=== PATIENT | female | born 1990 | race Caucasian/White ===

== ENCOUNTER 2021-08-28 19:22 | Outpatient (CLI) | payer SELFPAY ==
[~2021-08-28] VITALS: Ht 158 cm; Wt 104.1 kg
[~2021-08-28 19:22] MED LIST: IBUP-1773 PO; PNV91TAB3 PO
[2021-08-28 19:28] VITALS: BP 123/73
--- NOTE | 2021-08-29 08:21 | Physician Query-Final Dx ---
BIN08/29/21 0821: Clinic Account Progress/Dx Physician Query: Please give diagnosis Please include # weeks gestation Date of Service Aug 28, 2021 at 19:22 UCHE SOLIS MD 08/29/21 0857: Clinic Account Progress/Dx DIAGNOSIS: Diagnosis Third trimester 34 weeks gestation Abdominal pain in BIN,MayAug 29, 2021 08:21 UCHE SOLIS MD Aug 29, 2021 08:57
== END 2021-08-28 19:55 | disposition home or self-care (01) ==
LOC: WSo 19:22 → LDRP 19:22 → WSo 19:55
PROVIDERS: ATTEND Family Medicine
DX: O26.893 Other specified pregnancy related conditions, third trimester (principal); R10.9 Unspecified abdominal pain; Z3A.34 34 weeks gestation of pregnancy
CPT/HCPCS: 99212

== ENCOUNTER 2021-09-30 11:58 | Outpatient (CLI) | payer OTHER ==
[~2021-09-30] VITALS: Ht 154.9 cm; Wt 104.8 kg
[2021-09-30 12:00] VITALS: BP 134/88
[2021-09-30 12:25] VITALS: BP 134/80
[2021-09-30 12:51] LABS: BILIRUBIN,URINE NEGATIVE (NEGATIVE); CLARITY,URINE CLEAR; COLOR,URINE YELLOW; GLUCOSE, URINE (UA) NEGATIVE (NEGATIVE); KETONES,URINE NEGATIVE (NEGATIVE); LEUKOCYTE ESTERASE ,URINE TRACE (NEGATIVE); NITRITE,URINE NEGATIVE (NEGATIVE); PROTEIN,URINE NEGATIVE (NEGATIVE)
[2021-09-30 12:57] LABS: BASOPHILS % (AUTO) 0 % (0-10); EOSINOPHILS # (AUTO) 0.1 10^3/uL (0.0-0.3); EOSINOPHILS % (AUTO) 1 % (0-10); HEMATOCRIT 38 % (35-52); HEMOGLOBIN 12.2 g/dL (11.5-16.0); LYMPHOCYTES # (AUTO) 1.9 10^3/uL (1.0-4.0); LYMPHOCYTES % (AUTO) 18 % (12-44); MEAN CORPUSCULAR HEMOGLOBIN 27 pg (25-34); MEAN CORPUSCULAR HGB CONC 32 g/dL (32-36); MEAN CORPUSCULAR VOLUME 82 fL (80-99); MONOCYTES # (AUTO) 0.5 10^3/uL (0.0-1.0); MONOCYTES % (AUTO) 5 % (0-12); NEUTROPHILS # (AUTO) 7.9 10^3/uL (1.8-7.8); NEUTROPHILS % (AUTO) 76 % (42-75); PLATELET COUNT 273 10^3/uL (130-400); WHITE BLOOD COUNT 10.5 10^3/uL (4.3-11.0)
[2021-09-30 13:00] LABS: URINE CREATININE FOR RATIO 24 MG/DL (30-125); URINE PROTEIN FOR RATIO ONLY < 6 MG/DL (6-12)
[2021-09-30 13:01] LABS: BACTERIA,URINE FEW /HPF
[2021-09-30 13:10] LABS: ALBUMIN 3.4 GM/DL (3.2-4.5)
[2021-09-30 13:11] LABS: POTASSIUM 3.5 MMOL/L (3.6-5.0)
[2021-09-30 13:12] LABS: CALCIUM 10.2 MG/DL (8.5-10.1)
[2021-09-30 13:13] LABS: TOTAL PROTEIN 6.7 GM/DL (6.4-8.2)
[2021-09-30 13:15] LABS: BILIRUBIN,TOTAL 0.3 MG/DL (0.1-1.0)
[2021-09-30 13:17] LABS: CREATININE SERUM 0.7 MG/DL (0.60-1.30)
--- NOTE | 2021-10-01 08:36 | Physician Query-Final Dx ---
Clinic Account Progress/Dx Physician Query: Please give diagnosis Please include # weeks gestation Date of Service September 30, 2021 at 11:58 ,MayOctober 01, 2021 08:36
== END 2021-09-30 13:48 | disposition home or self-care (01) ==
LOC: LDRP 11:58 → WSo 11:58
PROVIDERS: ATTEND Family Medicine
DX: O13.3 Gestational [pregnancy-induced] hypertension without significant proteinuria, third trimester (principal); Z3A.39 39 weeks gestation of pregnancy
CPT/HCPCS: 80053; 81000; 82570; 84156; 85025; 87088; G0463; 36415; 99213

== ENCOUNTER 2021-10-02 07:12 | Inpatient (IN) | payer OTHER ==
[2021-10-02] VITALS (57 sets, daily range): BP systolic 110–155; BP diastolic 56–100
[2021-10-02] MEDS ORDERED: MINERAL OIL 30 ML TOP PRN (07:30)
[2021-10-02 07:32] LABS: BASOPHILS % (AUTO) 0 % (0-10); EOSINOPHILS % (AUTO) 0 % (0-10); HEMATOCRIT 37 % (35-52); LYMPHOCYTES # (AUTO) 1.8 10^3/uL (1.0-4.0); LYMPHOCYTES % (AUTO) 19 % (12-44); MEAN CORPUSCULAR HEMOGLOBIN 27 pg (25-34); MEAN CORPUSCULAR HGB CONC 32 g/dL (32-36); MEAN CORPUSCULAR VOLUME 82 fL (80-99); MEAN PLATELET VOLUME 10.2 fL (9.0-12.2); MONOCYTES # (AUTO) 0.5 10^3/uL (0.0-1.0); MONOCYTES % (AUTO) 5 % (0-12); NEUTROPHILS # (AUTO) 7.4 10^3/uL (1.8-7.8); NEUTROPHILS % (AUTO) 75 % (42-75); PLATELET COUNT 279 10^3/uL (130-400); WHITE BLOOD COUNT 9.8 10^3/uL (4.3-11.0)
[2021-10-02] MEDS ORDERED: NS (IVPB) 50 ML ONE (07:41)
[2021-10-02] MEDS ORDERED: AMPICILLIN 2,000 MG/14.8 ML (IV USE) ONE (07:41)
[2021-10-02] MEDS: D5 LR IV SOLUTION 1,000 ML IV SCH ×2 (07:44→16:08)
--- NOTE | 2021-10-02 08:13 | History & Physical-OB/GYN ---
BRITTANI CUMMINGS 10/02/21 0812: OB - Chief Complaint & HPI Date/Time Date of Admission: Date of Admission: October 02, 2021 at 07:12 Date seen by a Provider: October 02, 2021 Time Seen by a Provider: 07:57 Chief Complaint/History OB-Reason for Admission/Chief: Induction of Labor Hx : 4 Hx Para: 3 Hx Last Menstrual Period: 12/29/2020 Estimated Date of Conception: 01/11/2021 Expected Date of Delivery: October 05, 2021 Gestational Age in Weeks: 39 Gestational Age in Days: 4 Indication for induction: maternal discomfort (History of IOL (2010 and 2015)), maternal distance (Patient lives in [place]) History of Labs GBS Pos, HIV Neg, PAP Normal, HPV Neg, CBC Normal, A+ Blood Type, Antibody Neg, Syphilis Neg, Hep B Neg, TSH Normal, Rubella Immune, GC/Chlamydia Neg Allergies and Home Medications Allergies Coded Allergies: No Known Drug Allergies (Unverified , 10/02/21) Verified 10/02/2021 with patient Patient Home Medication List Home Medication List Reviewed: Yes Pnv95/Ferrous Fumarate/FA ( Caplet) 1 Each Tablet, 1 EACH PO DAILY, (Reported) Entered as Reported by: SALO REYES on 10/19/15 1242 OB - History Hx of Present Care: Yes Obstetrical Complications: None Medical Complications: None Information Induced Hypertension: No Maternal Gestational Diabetes: No Hemorrhage: No Obstetrical History Hx : 4 Hx Para: 3 Hx # Term Pregnancies: 3 Hx # Pregnancies: 0 Number of Living Children: 3 Hx Termination: No Hx Multiple Gestation: No Hx Ectopic : No Hx Stillbirth: No Hx Complication: No Hx Induced Hypertens: No Hx Maternal Gestational Diabet: No Hx Hemorrhage: No Delivery History Hx Dystocia: No Hx Forceps Assisted Delivery: No Hx Vacuum Extraction Assisted: No Hx Placenta Abnormality: Yes (Reported placenta previa during 2nd that resolved with time) Hx Distress: No Hx Large For Gestational Age I: No Hx Small for Gestational Age I: No Hx Section: No Hx Vaginal Delivery Post C-Sec: No Hx Blood Disorders: No Adverse Rxn to Tranfusion: No Patient Past Medical History hx of post- depression Social History/Family History Alcohol Use: Denies Use Recreational Drug Use: No Smoking Cessation: Former smoker (Full smoking cessation 7 months ago) 2nd Hand Smoke Exposure: No Immunizations Influenza Vaccine Up-to-Date: No; Not Current First/Initial COVID19 Vaccine: 08/15/2020 Second COVID19 Vaccination: 09/07/2020 Hepatitis A: No Hepatitis B: No Tetanus Booster (TDap): Less than 5yrs (08/15/2021) Rubella: immune RPR/VDRL: Negative GBS Status: Negative HBsAG: Negative OB - Admission Exam Physical Exam HEENT: PERRLA Heart: Rhythm Normal Lungs: Clear Abdomen: Gravid Extremities: Edema (Bilateral lower extremity 1+ edema) Reflexes: Normal Cervical Dilatation: 3cm Effacement: 0% Station: -3 Membranes: Intact Amniotic Fluid: Unevaluable Heart Rate: 140's Accelerations: Accelerations Present Decelerations: No Decelerations Short Term Variability: Present Instrumentation Designer Variability: Average (6-25) Frequency of Contractions: Irregular with frequent uterine irritability Song Scoring Tool (Modified) Dilation (cm): 3-4cm (2) Effacement (%): 0-30% (0) Descent/Station: -3 (0) Cervix Consistency: Soft (2) Cervix Position: Anterior (2) Add 1 point for: Each previous vaginal delivery (1) (3 previous vaginal deliveries) Song Score: 9 Labs Laboratory Tests Test 10/02/21 07:20 Range/Units White Blood Count 9.8 4.3-11.0 10^3/uL Red Blood Count 4.52 3.80-5.11 10^6/uL Hemoglobin 12.0 11.5-16.0 g/dL Hematocrit 37 35-52 % Mean Corpuscular Volume 82 80-99 fL Mean Corpuscular Hemoglobin 27 25-34 pg Mean Corpuscular Hemoglobin Concent 32 32-36 g/dL Red Cell Distribution Width 13.9 10.0-14.5 % Platelet Count 279 130-400 10^3/uL Mean Platelet Volume 10.2 9.0-12.2 fL Immature Granulocyte % (Auto) 0 % Neutrophils (%) (Auto) 75 42-75 % Lymphocytes (%) (Auto) 19 12-44 % Monocytes (%) (Auto) 5 0-12 % Eosinophils (%) (Auto) 0 0-10 % Basophils (%) (Auto) 0 0-10 % Neutrophils # (Auto) 7.4 1.8-7.8 10^3/uL Lymphocytes # (Auto) 1.8 1.0-4.0 10^3/uL Monocytes # (Auto) 0.5 0.0-1.0 10^3/uL Eosinophils # (Auto) 0.0 0.0-0.3 10^3/uL Basophils # (Auto) 0.0 0.0-0.1 10^3/uL Immature Granulocyte # (Auto) 0.0 0.0-0.1 10^3/uL OB - Assessment/Plan/Diagnosis Assessment Assessment: group B positive strep, induction of labor Admission Dx Induction of Labor, full term 39 weeks 4 days gestational age, GBS Pos Admission Status: Inpatient Order (span 2 midnights) Plan Plan: Induction Induction Method: per Pitocin Protocol Other Plan Ampicillin for GBS Positive Copy Copies To 1: UCHE SOLIS MD, BETHANY N MD 10/02/21 1125: Allergies and Home Medications Allergies Coded Allergies: No Known Drug Allergies (Unverified , 10/02/21) Verified 10/02/2021 with patient Patient Home Medication List Pnv95/Ferrous Fumarate/FA ( Caplet) 1 Each Tablet, 1 EACH PO DAILY, (Reported) Entered as Reported by: SALO REYES on 10/19/15 1242 Copy Copies To 1: UCHE SOLIS MD Supervisory-Addendum Brief Verification & Attestation Participated in pt care: history, MDM, physical Personally performed: exam Care discussed with: Medical Student Procedures: n/a I personally have seen and evaluated the patient and performed the physical exam. I agree with the documented assessment and plan. BRITTANI CUMMINGS October 02, 2021 08:12 UCHE SOLIS MD October 02, 2021 11:25
[2021-10-02] MEDS ORDERED: AMPICILLIN FOR IV USE 2,000 MG in NS (IVPB) 50 ML IV SCH (09:54)
[2021-10-02] MEDS: OXYTOCIN PRE-MIX DRIP 500 ML IV SCH ×2 (11:09→23:43)
[2021-10-02] MEDS: AMPICILLIN FOR IV USE 1,000 MG in NS (IVPB) 50 ML IV SCH ×3 (12:52→19:59)
[2021-10-02] MEDS ORDERED: CATHETER FLUSH 10 ML SYR IV SCH (14:00)
--- NOTE | 2021-10-02 16:02 | Labor Progress Note ---
Labor Progress Note Labor Progress Note Date Seen by Provider: October 02, 2021 Time Seen by Provider: 15:50 Subjective: Pt starting to hurt with contractions. Objective: Cervical exam: /-3 Consistency: soft Position: anterior Presentation: vertex heart tones: 150 beats per minute, moderate variability, reactive, no decels, category I tracing Tocometer: 5 ctx/10 minutes Assessment/Plan: Deedee Vaz is a (31 /Para 4 / 3,Gestational Age (wks)39 here for induction of labor. CEFM/TOCO Continue pitocin Anesthesia: none Anticipate vaginal delivery. Vitals - Labs Vital Signs - I&O Vital Signs Date Time Temp Pulse Resp B/P (MAP) Pulse Ox O2 Delivery O2 Flow Rate FiO2 10/02/21 15:25 71 18 142/73 (96) Room Air 10/02/21 15:10 80 18 134/85 (101) Room Air 10/02/21 14:55 71 18 123/80 (94) Room Air 10/02/21 14:40 78 18 116/75 (89) Room Air 10/02/21 14:25 36.6 81 18 110/73 (85) Room Air 10/02/21 13:40 75 18 124/71 (88) Room Air 10/02/21 13:25 82 18 117/67 (84) Room Air 10/02/21 13:10 76 18 137/90 (106) Room Air 10/02/21 12:55 81 18 112/57 (75) Room Air 10/02/21 12:25 76 18 127/85 (99) Room Air 10/02/21 12:10 81 18 122/63 (82) Room Air 10/02/21 11:55 75 18 122/63 (82) Room Air 10/02/21 11:40 77 18 134/81 (98) Room Air 10/02/21 11:25 70 18 125/76 (92) Room Air 10/02/21 11:10 78 18 135/86 (102) Room Air Labs Laboratory Tests 10/02/21 07:20: White Blood Count 9.8, Red Blood Count 4.52, Hemoglobin 12.0, Hematocrit 37, Mean Corpuscular Volume 82, Mean Corpuscular Hemoglobin 27, Mean Corpuscular Hemoglobin Concent 32, Red Cell Distribution Width 13.9, Platelet Count 279, Mean Platelet Volume 10.2, Immature Granulocyte % (Auto) 0, Neutrophils (%) (Auto) 75, Lymphocytes (%) (Auto) 19, Monocytes (%) (Auto) 5, Eosinophils (%) (Auto) 0, Basophils (%) (Auto) 0, Neutrophils # (Auto) 7.4, Lymphocytes # (Auto) 1.8, Monocytes # (Auto) 0.5, Eosinophils # (Auto) 0.0, Basophils # (Auto) 0.0, Immature Granulocyte # (Auto) 0.0 UCHE SOLIS MD October 02, 2021 16:02
--- NOTE | 2021-10-02 20:37 | Labor Progress Note ---
Labor Progress Note Labor Progress Note Date Seen by Provider: October 02, 2021 Time Seen by Provider: 20:10 Subjective: Pt denies complaints. Objective: Cervical exam: 4.5/60/-3 (per nursing report) Consistency: soft Position: anterior Presentation: vertex heart tones: 150 beats per minute, moderate variability Tocometer: 5 ctx/10 minutes Assessment/Plan: Deedee Vaz is a (31 /Para 4 / 3,Gestational Age (wks)39 here for induction of labor, experiencing prolonged latent phase. Discussed options including continuing current pitocin, attempting controlled AROM, abandoning induction at this time and trying another day and holding pitocin for a few hours and restarting after a rest. She would like to pursue the final option, will recheck in about an hour and if no change, will hold pitocin, allow to ambulate and then rest for a few hours before resuming pitocin. CEFM/TOCO Continue pitocin Anesthesia: none Anticipate vaginal delivery. Vitals - Labs Vital Signs - I&O Vital Signs Date Time Temp Pulse Resp B/P (MAP) Pulse Ox O2 Delivery O2 Flow Rate FiO2 10/02/21 18:55 79 18 134/89 (104) Room Air 10/02/21 18:40 76 18 138/90 (106) Room Air 10/02/21 18:25 74 18 129/76 (93) Room Air 10/02/21 17:55 84 18 122/71 (88) Room Air 10/02/21 17:40 81 18 120/67 (84) Room Air 10/02/21 17:25 37.1 88 18 120/59 (79) Room Air 10/02/21 17:10 76 18 127/60 (82) Room Air 10/02/21 16:55 77 18 136/82 (100) Room Air 10/02/21 16:40 80 18 133/80 (97) Room Air 10/02/21 16:25 73 18 119/79 (92) Room Air 10/02/21 16:10 77 18 133/77 (95) Room Air 10/02/21 15:55 79 18 153/82 (105) Room Air 10/02/21 15:40 69 18 133/79 (97) Room Air 10/02/21 15:25 71 18 142/73 (96) Room Air 10/02/21 15:10 80 18 134/85 (101) Room Air 10/02/21 14:55 71 18 123/80 (94) Room Air 10/02/21 14:40 78 18 116/75 (89) Room Air 10/02/21 14:25 36.6 81 18 110/73 (85) Room Air 10/02/21 13:40 75 18 124/71 (88) Room Air 10/02/21 13:25 82 18 117/67 (84) Room Air 10/02/21 13:10 76 18 137/90 (106) Room Air 10/02/21 12:55 81 18 112/57 (75) Room Air 10/02/21 12:25 76 18 127/85 (99) Room Air 10/02/21 12:10 81 18 122/63 (82) Room Air 10/02/21 11:55 75 18 122/63 (82) Room Air 10/02/21 11:40 77 18 134/81 (98) Room Air 10/02/21 11:25 70 18 125/76 (92) Room Air 10/02/21 11:10 78 18 135/86 (102) Room Air Labs Laboratory Tests 10/02/21 07:20: White Blood Count 9.8, Red Blood Count 4.52, Hemoglobin 12.0, Hematocrit 37, Mean Corpuscular Volume 82, Mean Corpuscular Hemoglobin 27, Mean Corpuscular Hemoglobin Concent 32, Red Cell Distribution Width 13.9, Platelet Count 279, Mean Platelet Volume 10.2, Immature Granulocyte % (Auto) 0, Neutrophils (%) (Auto) 75, Lymphocytes (%) (Auto) 19, Monocytes (%) (Auto) 5, Eosinophils (%) (Auto) 0, Basophils (%) (Auto) 0, Neutrophils # (Auto) 7.4, Lymphocytes # (Auto) 1.8, Monocytes # (Auto) 0.5, Eosinophils # (Auto) 0.0, Basophils # (Auto) 0.0, Immature Granulocyte # (Auto) 0.0 UCHE SOLIS MD October 02, 2021 20:37
--- NOTE | 2021-10-02 21:24 | Labor Progress Note ---
Labor Progress Note Labor Progress Note Date Seen by Provider: October 02, 2021 Time Seen by Provider: 21:10 Subjective: Pt having more pain with contractions. Objective: Cervical exam: /-3 Consistency: soft Position: anterior Presentation: vertex heart tones: 150 beats per minute prior to AROM, 160s after, moderate variability Tocometer: 5 ctx/10 minutes Assessment/Plan: Deedee Vaz is a (31 /Para 4 / 3,Gestational Age (wks)39 here for induction of labor. AROM done at time of this exam with clear fluid, FSE placed for better monitoring ability. FSE/TOCO Continue pitocin Anesthesia: none Anticipate vaginal delivery. Vitals - Labs Vital Signs - I&O Vital Signs Date Time Temp Pulse Resp B/P (MAP) Pulse Ox O2 Delivery O2 Flow Rate FiO2 10/02/21 19:45 36.5 76 18 143/86 (105) Room Air 10/02/21 19:30 74 18 128/73 (91) Room Air 10/02/21 19:15 80 18 137/83 (101) Room Air 10/02/21 18:55 79 18 134/89 (104) Room Air 10/02/21 18:40 76 18 138/90 (106) Room Air 10/02/21 18:25 74 18 129/76 (93) Room Air 10/02/21 17:55 84 18 122/71 (88) Room Air 10/02/21 17:40 81 18 120/67 (84) Room Air 10/02/21 17:25 37.1 88 18 120/59 (79) Room Air 10/02/21 17:10 76 18 127/60 (82) Room Air 10/02/21 16:55 77 18 136/82 (100) Room Air 10/02/21 16:40 80 18 133/80 (97) Room Air 10/02/21 16:25 73 18 119/79 (92) Room Air 10/02/21 16:10 77 18 133/77 (95) Room Air 10/02/21 15:55 79 18 153/82 (105) Room Air 10/02/21 15:40 69 18 133/79 (97) Room Air 10/02/21 15:25 71 18 142/73 (96) Room Air 10/02/21 15:10 80 18 134/85 (101) Room Air 10/02/21 14:55 71 18 123/80 (94) Room Air 10/02/21 14:40 78 18 116/75 (89) Room Air 10/02/21 14:25 36.6 81 18 110/73 (85) Room Air 10/02/21 13:40 75 18 124/71 (88) Room Air 10/02/21 13:25 82 18 117/67 (84) Room Air 10/02/21 13:10 76 18 137/90 (106) Room Air 10/02/21 12:55 81 18 112/57 (75) Room Air 10/02/21 12:25 76 18 127/85 (99) Room Air 10/02/21 12:10 81 18 122/63 (82) Room Air 10/02/21 11:55 75 18 122/63 (82) Room Air 10/02/21 11:40 77 18 134/81 (98) Room Air 10/02/21 11:25 70 18 125/76 (92) Room Air 10/02/21 11:10 78 18 135/86 (102) Room Air Labs Laboratory Tests 10/02/21 07:20: White Blood Count 9.8, Red Blood Count 4.52, Hemoglobin 12.0, Hematocrit 37, Mean Corpuscular Volume 82, Mean Corpuscular Hemoglobin 27, Mean Corpuscular Hemoglobin Concent 32, Red Cell Distribution Width 13.9, Platelet Count 279, Mean Platelet Volume 10.2, Immature Granulocyte % (Auto) 0, Neutrophils (%) (Auto) 75, Lymphocytes (%) (Auto) 19, Monocytes (%) (Auto) 5, Eosinophils (%) (Auto) 0, Basophils (%) (Auto) 0, Neutrophils # (Auto) 7.4, Lymphocytes # (Auto) 1.8, Monocytes # (Auto) 0.5, Eosinophils # (Auto) 0.0, Basophils # (Auto) 0.0, Immature Granulocyte # (Auto) 0.0 UCHE SOLIS MD October 02, 2021 21:24
[2021-10-02] MEDS ORDERED: fentaNYL INJ 100 MCG/2 ML AMP ONE ×2 (21:52→22:45)
[2021-10-02] MEDS ORDERED: fentaNYL INJ 100 MCG/2 ML AMP IVP PRN (22:00)
[2021-10-02] MEDS ORDERED: LIDOCAINE/EPI 2% 1:200,00 (XYLOCAINE) 10 ML VIAL ONE (22:29)
[2021-10-02] MEDS ORDERED: BUPIVACAINE 0.25% 10 ML (SENSORCAINE) VIAL ONE (22:45)
[2021-10-02] MEDS ORDERED: fentaNYL 2 mcg/ml BUPIVA 0.125 100 ML ONE (22:48)
[2021-10-02] MEDS ORDERED: LIDOCAINE PF 2% 5 ML (XYLOCAINE) VIAL ONE (23:17)
--- NOTE | 2021-10-02 23:56 | OB Labor & Delivery Record ---
Vag Delivery Note Vag Delivery Note Date of Delivery: 10/02/21 Preoperative Diagnosis: Deedee Vaz is a (31 /Para 4 / 3, Gestational Age (wks)39with 4 days Postoperative Diagnosis: Same Surgeon: UCHE SOLIS Anesthesia: Epidural Delivery Type: Findings: Viable female , apgars [], weight 8#3 Lacerations: None Intact placenta with 3 vessel cord. Loose nuchal cord x 2 delivered through. Brief less than 1 minute shoulder dystocia resolved with McRobert's positioning Estimated Blood Loss: 400 ml Complications: None Condition: Stable Description of Procedure: The patient is a 31 year old female who presented for induction of labor. She was admitted and informed consent was obtained. Her labor course was unremarkable. She progressed to complete dilatation and began to push. She was then set up for delivery. The infant's head was delivered atraumatically in the LUANA position. McRobert's positioning was required to deliver the anterior shoulder less than 60 seconds after head, and then the remainder of the infant's body were then delivered without difficulty. Upon delivery, the infant was vigorous and placed on maternal abdomen. An intact placenta with 3-vessel cord delivered via Fiona and there was found to be minimal bleeding.~ Vigorous fundal massage was performed and the fundus was found to be firm. IV oxytocin was given. Examination of the vagina and perineum revealed a no lacerations. Following the delivery, sponge, instrument and needle counts were correct. Mom and baby were both in stable condition in the labor suite. Vitals - Labs Vital Signs - I&O Vital Signs Date Time Temp Pulse Resp B/P (MAP) Pulse Ox O2 Delivery O2 Flow Rate FiO2 10/02/21 20:45 79 18 134/85 (101) Room Air 10/02/21 20:30 77 18 134/82 (99) Room Air 10/02/21 20:15 80 18 155/78 (103) Room Air 10/02/21 20:00 80 18 135/87 (103) Room Air 10/02/21 19:45 36.5 76 18 143/86 (105) Room Air 10/02/21 19:30 74 18 128/73 (91) Room Air 10/02/21 19:15 80 18 137/83 (101) Room Air 10/02/21 18:55 79 18 134/89 (104) Room Air 10/02/21 18:40 76 18 138/90 (106) Room Air 10/02/21 18:25 74 18 129/76 (93) Room Air 10/02/21 17:55 84 18 122/71 (88) Room Air 10/02/21 17:40 81 18 120/67 (84) Room Air 10/02/21 17:25 37.1 88 18 120/59 (79) Room Air 10/02/21 17:10 76 18 127/60 (82) Room Air 10/02/21 16:55 77 18 136/82 (100) Room Air 10/02/21 16:40 80 18 133/80 (97) Room Air 10/02/21 16:25 73 18 119/79 (92) Room Air 10/02/21 16:10 77 18 133/77 (95) Room Air 10/02/21 15:55 79 18 153/82 (105) Room Air 10/02/21 15:40 69 18 133/79 (97) Room Air 10/02/21 15:25 71 18 142/73 (96) Room Air 10/02/21 15:10 80 18 134/85 (101) Room Air 10/02/21 14:55 71 18 123/80 (94) Room Air 10/02/21 14:40 78 18 116/75 (89) Room Air 10/02/21 14:25 36.6 81 18 110/73 (85) Room Air 10/02/21 13:40 75 18 124/71 (88) Room Air 10/02/21 13:25 82 18 117/67 (84) Room Air 10/02/21 13:10 76 18 137/90 (106) Room Air 10/02/21 12:55 81 18 112/57 (75) Room Air 10/02/21 12:25 76 18 127/85 (99) Room Air 10/02/21 12:10 81 18 122/63 (82) Room Air 10/02/21 11:55 75 18 122/63 (82) Room Air 10/02/21 11:40 77 18 134/81 (98) Room Air 10/02/21 11:25 70 18 125/76 (92) Room Air 10/02/21 11:10 78 18 135/86 (102) Room Air Labs Laboratory Tests 10/02/21 07:20: White Blood Count 9.8, Red Blood Count 4.52, Hemoglobin 12.0, Hematocrit 37, Mean Corpuscular Volume 82, Mean Corpuscular Hemoglobin 27, Mean Corpuscular Hemoglobin Concent 32, Red Cell Distribution Width 13.9, Platelet Count 279, Mean Platelet Volume 10.2, Immature Granulocyte % (Auto) 0, Neutrophils (%) (Auto) 75, Lymphocytes (%) (Auto) 19, Monocytes (%) (Auto) 5, Eosinophils (%) (Auto) 0, Basophils (%) (Auto) 0, Neutrophils # (Auto) 7.4, Lymphocytes # (Auto) 1.8, Monocytes # (Auto) 0.5, Eosinophils # (Auto) 0.0, Basophils # (Auto) 0.0, Immature Granulocyte # (Auto) 0.0 UCHE SOLIS MD October 02, 2021 23:56
[2021-10-03] VITALS (9 sets, daily range): BP systolic 112–125; BP diastolic 53–77
[2021-10-03] MEDS ORDERED: diphenhydrAMINE 50 MG/ML INJ (BENADRYL) IV PRN
[2021-10-03] MEDS ORDERED: METOCLOPRAMIDE INJ 10 MG/2 ML (REGLAN) IV PRN
[2021-10-03] MEDS ORDERED: EPIDURAL (fentaNYL 2 MCG/ML BUPIVA 0.125%)100 ML BAG EPI PRN
[2021-10-03] MEDS ORDERED: NALOXONE 0.4 MG/ML 1 ML (NARCAN) VIAL IV PRN ×2
[2021-10-03] MEDS ORDERED: LACTATED RINGERS 1,000 ML IV SCH
[2021-10-03] MEDS ORDERED: ONDANSETRON 4 MG/2 ML (SDV) Z0FRAN IV PRN
[2021-10-03] MEDS: OXYTOCIN PRE-MIX DRIP 500 ML IV SCH ×2 (00:05)
[2021-10-03] MEDS ORDERED: WITCH HAZEL(TUCKS) 40 EA JAR TOP PRN (00:45)
[2021-10-03] MEDS ORDERED: BENZOCAINE/MENTHOL (DERMOPLAST) 56 ML CAN TP PRN (00:45)
[2021-10-03] MEDS: IBUPROFEN 600 MG (MOTRIN) TAB PO PRN ×2 (04:51→18:13)
[2021-10-03] MEDS ORDERED: CATHETER FLUSH 10 ML SYR IV SCH (06:00)
[2021-10-03 06:04] LABS: BASOPHILS % (AUTO) 0 % (0-10); EOSINOPHILS % (AUTO) 0 % (0-10); HEMATOCRIT 31 % (35-52); HEMOGLOBIN 10.4 g/dL (11.5-16.0); LYMPHOCYTES # (AUTO) 1.4 10^3/uL (1.0-4.0); LYMPHOCYTES % (AUTO) 11 % (12-44); MEAN CORPUSCULAR HEMOGLOBIN 27 pg (25-34); MEAN CORPUSCULAR HGB CONC 33 g/dL (32-36); MEAN CORPUSCULAR VOLUME 82 fL (80-99); MEAN PLATELET VOLUME 10.2 fL (9.0-12.2); MONOCYTES # (AUTO) 0.5 10^3/uL (0.0-1.0); MONOCYTES % (AUTO) 4 % (0-12); NEUTROPHILS # (AUTO) 10.8 10^3/uL (1.8-7.8); NEUTROPHILS % (AUTO) 85 % (42-75); PLATELET COUNT 244 10^3/uL (130-400); WHITE BLOOD COUNT 12.7 10^3/uL (4.3-11.0)
[2021-10-03] MEDS ORDERED: DOCU100C37 PO (07:53)
[2021-10-03] MEDS ORDERED: FERR325T24 PO (07:53)
[2021-10-03] MEDS ORDERED: IBUP-844 PO (07:53)
--- NOTE | 2021-10-03 07:54 | Progress Note ---
Subjective Subjective/Events-last exam PPD#1 s/p , doing well, denies concerns. Bleeding minimal. Denies dizziness, chest pain, shortness of breath. Objective Exam Last Set of Vital Signs Vital Signs Date Time Temp Pulse Resp B/P (MAP) Pulse Ox O2 Delivery O2 Flow Rate FiO2 10/03/21 04:52 36.3 90 18 125/77 (93) 97 Room Air Capillary Refill : I&O Intake and Output 10/03/21 00:00 Intake Total 1114.8 ml Balance 1114.8 ml Intake IV Total 1114.8 ml Daily Weight Change No General: Alert, No Acute Distress Lungs: Clear to Auscultation Heart: Regular Rate, No Murmurs Abdomen: Other (fundus firm at umbilicus) Neuro: Normal Speech Psych/Mental Status: Mental Status NL Results/Procedures Lab Laboratory Tests 10/03/21 05:56: White Blood Count 12.7H, Red Blood Count 3.81, Hemoglobin 10.4L, Hematocrit 31L, Mean Corpuscular Volume 82, Mean Corpuscular Hemoglobin 27, Mean Corpuscular Hemoglobin Concent 33, Red Cell Distribution Width 13.9, Platelet Count 244, Mean Platelet Volume 10.2, Immature Granulocyte % (Auto) 0, Neutrophils (%) (Auto) 85H, Lymphocytes (%) (Auto) 11L, Monocytes (%) (Auto) 4, Eosinophils (%) (Auto) 0, Basophils (%) (Auto) 0, Neutrophils # (Auto) 10.8H, Lymphocytes # (Auto) 1.4, Monocytes # (Auto) 0.5, Eosinophils # (Auto) 0.0, Basophils # (Auto) 0.0, Immature Granulocyte # (Auto) 0.1 Assessment/Plan Assessment/Plan (1) Spontaneous vaginal delivery Status: Acute Assessment & Plan: Routine care (2) anemia Status: Acute Assessment & Plan: Acute blood loss anemia, asymptomatic, start iron daily. UCHE SOLIS MD October 03, 2021 07:54
[2021-10-03] MEDS: DOCUSATE SODIUM 100 MG (COLACE) CAP PO SCH ×3 (09:27→22:10)
[2021-10-03] MEDS: PRENATAL VITAMIN 1 EA TAB PO SCH ×2 (09:27→09:33)
--- NOTE | 2021-10-03 12:41 | Anesthesia-Regional Post-Op ---
Regional Patient Condition Mental Status: Alert, Oriented x3 Circulation: Same as Pre-Op Headache: Absent Sensation: Full Recovery Motor Block: Absent Post Op Complications Complications None Follow Up Care/Instructions Patient Instructions None needed. Anesthesia/Patient Condition Patient is doing well, no complaints, stable vital signs, no apparent adverse anesthesia problems. No complications reported per nursing. LEIF PÉREZ CRNA October 03, 2021 12:41
[2021-10-04 00:42] VITALS: BP 103/62
[2021-10-04 04:20] VITALS: BP 129/80
[2021-10-04] MEDS: IBUPROFEN 600 MG (MOTRIN) TAB PO PRN (06:39)
--- NOTE | 2021-10-04 06:51 | Discharge Inst-Women's Service ---
Discharge Inst-Women's Serv Depart Medication/Instructions New, Converted or Re-Newed RX: Transmitted to Pharmacy (Acute) Instructions Prescription called in are Colace twice daily, ibuprofen every 6 hours as needed for cramps and iron daily Problems Reviewed?: Yes Consults/Follow Up Additional Follow Up: Yes (Dr Ny in 6 weeks.) Activity Driving Instructions: No Driving for 1 Week Nothing Inside Vagina: No [place] (For 6 weeks) Diet Discharge Diet: Regular Diet Return to The Hospital For: As below Symptoms to Report to : Bleeding Excessive, Fever Over 101 Degrees F, Vaginal Discharge Foul For Any Problems or Questions: Contact Your Physician KEIRY SMITH MD October 04, 2021 06:51
--- NOTE | 2021-10-04 06:54 | Discharge Summary ---
Diagnosis/Chief Complaint Date of Admission October 02, 2021 at 07:12 Date of Discharge October 04, 2021 Admission Diagnosis Admission Diagnosis 1. Intrauterine at term 39 weeks Discharge Diagnosis 1. Intrauterine at term 39 weeks 2. Mild anemia Problems/Diagnosis: (1) Spontaneous vaginal delivery Assessment & Plan: Routine care Status: Acute (2) anemia Assessment & Plan: Acute blood loss anemia, asymptomatic, start iron daily. Status: Acute Discharge Summary-OBS Procedures 1. Epidural per anesthesia 2. Spontaneous vaginal delivery Discharge Physical Examination Allergies: Coded Allergies: No Known Drug Allergies (Unverified , 10/02/21) Verified 10/02/2021 with patient Vitals & I&Os Vital Sign - Last 12Hours Date Time Temp Pulse Resp B/P (MAP) Pulse Ox O2 Delivery O2 Flow Rate FiO2 10/04/21 04:20 36.6 58 16 129/80 (96) 99 Room Air General Appearance: No Acute Distress Respiratory: Clear to Auscultation Cardiovascular: Regular Rate Abdominal: Soft (With uterus firm) Psych/Mental Status: Mental Status NL Hospital Course Was the Problem List Reviewed?: Yes Discharge Instructions to patient/family Please see electronic discharge instructions given to patient. Discharge Medications Reviewed and agree with Discharge Medication list on patient's Discharge Instruction sheet KEIRY SMITH MD October 04, 2021 06:54
[2021-10-04] MEDS ORDERED: FERROUS SULF 325 MG (IRON) TAB PO SCH (07:00)
[2021-10-04] MEDS: DOCUSATE SODIUM 100 MG (COLACE) CAP PO SCH (09:08)
[2021-10-04] MEDS: PRENATAL VITAMIN 1 EA TAB PO SCH (09:08)
[2021-10-04 09:10] VITALS: BP 125/79
== END 2021-10-04 10:25 | disposition home or self-care (01) | DRG 806 ==
LOC: LDRP 07:12
PROVIDERS: ADMIT Family Medicine; ATTEND Family Medicine
PROC: 10E0XZZ Delivery of Products of Conception, External Approach (ICD-10-PCS; principal; 2021-10-02)
PROC: 10907ZC Drainage of Amniotic Fluid, Therapeutic from Products of Conception, Via Natural or Artificial Opening (ICD-10-PCS; 2021-10-02)
DX: O99.824 Streptococcus B carrier state complicating childbirth (principal); D62 Acute posthemorrhagic anemia; Z37.0 Single live birth; Z3A.39 39 weeks gestation of pregnancy; O69.81X0 Labor and delivery complicated by cord around neck, without compression, not applicable or unspecified; O90.81 Anemia of the puerperium
CPT/HCPCS: 36415; 85025; 86850; 86900; 86901